=== PATIENT | male | born 1970 | race Asian ===

== ENCOUNTER → 2016-07-09 | Outpatient (REF) | payer OTHER ==
[2016-07-09 12:33] LABS: BASOPHILS % (AUTO) 1 % (0-2); EOSINOPHILS # (AUTO) 0.2 10^3uL; EOSINOPHILS % (AUTO) 2 % (0-4); LYMPHOCYTES # (AUTO) 2.8 X10^3; MEAN CORPUSCULAR HEMOGLOBIN 30.2 PG (26.0-34.0); MEAN CORPUSCULAR VOLUME 84 FL (80-100); MEAN PLATELET VOLUME 9.6 FL (6.0-9.5); MONOCYTES # (AUTO) 0.7 X10^3; MONOCYTES % (AUTO) 9 % (3-11); NEUTROPHILS # (AUTO) 3.6 X10^3; NEUTROPHILS % (AUTO) 49 % (51-67); PLATELET COUNT 291 10^3uL (150-450); WHITE BLOOD COUNT 7.32 10^3uL (4.0-11.0)
[2016-07-09 12:41] LABS: MEAN CORPUSCULAR HGB CONC 36.1 g/dL (31.0-37.0)
[2016-07-09 12:47] LABS: ALBUMIN 4.9 g/dL (3.4-5.0); ALKALINE PHOSPHATASE 83 U/L (38-126); ANION GAP 18.2 MEQ/L (3-15); BUN/CREATININE RATIO 21 (10-20); CALCULATED IONIZED CALCIUM 3.8 mg/dL (3.8-4.6); TOTAL PROTEIN 8.4 g/dL (6.4-8.5)
[2016-07-09 14:25] LABS: ERYTHROCYTE SEDIMENTATION RT* 12 mm/hr (0-12)
== END ==
LOC: LAB 12:15
PROVIDERS: ATTEND Physician Assistant Surgical
DX: R55 Syncope and collapse (principal)
CPT/HCPCS: 80053; 85025; 85652; 86038; 86140

== ENCOUNTER → 2016-07-22 | Outpatient (CLI) | payer OTHER ==
--- NOTE | 2016-07-22 14:19 | Diagnostic Imaging Report ---
PROCEDURE: MR angiography neck with and without contrast. TECHNIQUE: Pre and post contrast-enhanced MR angiography of the neck was performed. Source data was reformatted into rotating MIP projections. INDICATION: Syncope. FINDINGS: 2-D [id number] and 2-D phase-contrast imaging was performed. There is some motion artifact present. The carotid arteries and vertebral arteries show normal takeoff. There is no evidence of stenosis or dissection. Both internal and external carotid arteries are widely patent. Internal carotid arteries appear normal to the carotid siphon. The vertebral arteries are symmetrical with both vertebral arteries supplying the basilar artery. IMPRESSION: 1. Moderate motion artifact present limiting detail slightly. 2. No findings are seen to indicate dissection of the carotid or vertebral arteries or significant stenosis. Dictated by: Dictated on workstation # [id number]
--- NOTE | 2016-07-22 14:19 | Diagnostic Imaging Report ---
INDICATION: Syncope with visual changes. FINDINGS: No evidence of restricted diffusion to suggest acute ischemic process. There is no intracranial hemorrhage. There is no mass effect. Ventricles and cortical gyral pattern are normal. The optic tracts appear normal. The orbital contents are symmetrical with normal-appearing optic nerve. No evidence of pituitary mass. No evidence of demyelinating disease. MR angiography of was performed. The carotid arteries were widely patent and the carotid siphon. Both vertebral arteries supply the basilar artery. The anterior middle and posterior cerebral arteries appear normal. The hoh of [place] is normal. There are no aneurysm. The cerebellar arteries are normal in appearance. Following IV contrast injection, there is no evidence of abnormal intracranial enhancement. The sagittal and transverse sinuses appear normal. The mastoid air cells are clear. Paranasal sinuses are clear. IMPRESSION: Normal MRI and MRA of the brain. Dictated by: Dictated on workstation # [id number]
== END ==
LOC: RAD 12:24
PROVIDERS: ATTEND Family Medicine
DX: R55 Syncope and collapse (principal); H53.8 Other visual disturbances
CPT/HCPCS: 70544; 70549; 70553; A9579

== ENCOUNTER → 2016-08-14 | Outpatient (CLI) | payer OTHER | LOC: RT 13:30 | PROVIDERS: ATTEND Family Medicine | DX: Z53.9 Procedure and treatment not carried out, unspecified reason (principal) ==